=== PATIENT | female | born 1955 | race Caucasian/White ===

== ENCOUNTER 2020-04-01 16:23 | Inpatient (IN) ==
[2020-04-01] MEDS: *HR* OxyCODONE Immed Rel 5 MG TABLET PO PRN (18:58)
[2020-04-01] MEDS: Metoprolol 100 MG TABLET PO SCH (20:38)
[2020-04-01] MEDS: amLODIPine 5 MG TABLET PO SCH (20:38)
[2020-04-01] MEDS: *HR* Metformin 500 MG TABLET PO SCH (20:41)
[2020-04-02 06:32] LABS: Basophils % 0.1 %; Eosinophils # 0.1 K/mcL (0.0-0.6); Eosinophils % 0.6 %; Hematocrit 25.4 % (35.3-44.9); Hemoglobin 8.8 g/dL (11.5-15.4); Immature Granulocytes % 0.5 % (0-4); Lymphocytes # 1.9 K/mcL (0.6-4.6); Lymphocytes % 20.6 %; Mean Corpuscular HGB Conc 34.6 g/dL (31.6-35.5); Mean Corpuscular Hemoglobin 32.1 pg (28.0-33.3); Mean Corpuscular Volume 92.7 fL (83.0-100.0); Mean Platelet Volume 10.8 fL (9.4-12.4); Monocytes % 11.1 %; Neutrophils # 6.2 K/mcL (1.6-8.9); Platelet Count 239 K/mcL (140-400); Red Blood Count 2.74 M/mcL (3.82-4.97); Red Cell Distribution Width 12.4 % (11.5-14.5); Segmented Neutrophils % 67.1 %; White Blood Count 9.3 K/mcL (4.3-11.1)
[2020-04-02 06:52] LABS: BUN/Creatinine Ratio 12 (6-26); Blood Urea Nitrogen 8 mg/dL (8-23); Calcium 8.3 mg/dL (8.6-10.3); Carbon Dioxide 29 mEq/L (23-29); Chloride 98 mEq/L (98-107); Glucose 161 mg/dL (70-105); Osmolality,Calculated 284 (280-300); Potassium 3.2 mEq/L (3.5-5.1); Sodium 136 mEq/L (136-145); eGFR For African Americans > 60 (> 60); eGFR For Non-African Americans > 60 (> 60)
[2020-04-02] MEDS: amLODIPine 5 MG TABLET PO SCH ×2 (08:53→20:45)
[2020-04-02] MEDS: Losartan/HCTZ 50-12.5 TABLET PO SCH (08:54)
[2020-04-02] MEDS: *HR* OxyCODONE Immed Rel 5 MG TABLET PO PRN ×2 (08:54→17:04)
[2020-04-02] MEDS: *HR* Metformin 500 MG TABLET PO SCH ×2 (08:54→17:02)
[2020-04-02] MEDS: Metoprolol 100 MG TABLET PO SCH ×2 (08:54→20:45)
[2020-04-02] MEDS: FLUoxetine 20 MG CAPSULE PO SCH (08:55)
[2020-04-02] MEDS: Cholecalciferol (D-3) 1,000 UNIT (25MCG) TABLET PO SCH (08:55)
[2020-04-02] MEDS: (Colestipol Hcl [Colestid] 1 GM) PO SCH (08:55)
[2020-04-02] MEDS ORDERED: Aspirin Enteric Coated 81 MG Tablet PO SCH (09:00)
[2020-04-02] MEDS: Acetaminophen 325 MG TABLET PO PRN (14:04)
[2020-04-02] MEDS: Insulin LISPRO 300 UNITS/3 ML VIAL SQ SCH (23:24)
[2020-04-03] MEDS: Acetaminophen 325 MG TABLET PO PRN ×2 (05:50→14:06)
[2020-04-03] MEDS: *HR* Enoxaparin 40 MG/0.4 ML SYRINGE SQ SCH (05:51)
[2020-04-03] MEDS: FLUoxetine 20 MG CAPSULE PO SCH (09:08)
[2020-04-03] MEDS: Aspirin Enteric Coated 81 MG Tablet PO SCH (09:08)
[2020-04-03] MEDS: Metoprolol 100 MG TABLET PO SCH ×2 (09:08→22:00)
[2020-04-03] MEDS: *HR* Metformin 500 MG TABLET PO SCH ×2 (09:08→16:42)
[2020-04-03] MEDS: amLODIPine 5 MG TABLET PO SCH ×2 (09:08→21:59)
[2020-04-03] MEDS: Losartan/HCTZ 50-12.5 TABLET PO SCH (09:09)
[2020-04-03] MEDS: Cholecalciferol (D-3) 1,000 UNIT (25MCG) TABLET PO SCH (09:09)
[2020-04-03] MEDS: (Colestipol Hcl [Colestid] 1 GM) PO SCH (09:09)
[2020-04-03] MEDS: *HR* OxyCODONE Immed Rel 5 MG TABLET PO PRN (09:15)
[2020-04-03] MEDS: Insulin LISPRO 300 UNITS/3 ML VIAL SQ SCH ×4 (09:16→21:59)
[2020-04-04] MEDS: *HR* Enoxaparin 40 MG/0.4 ML SYRINGE SQ SCH (06:23)
[2020-04-04] MEDS: Metoprolol 100 MG TABLET PO SCH ×2 (08:16→21:22)
[2020-04-04] MEDS: *HR* OxyCODONE Immed Rel 5 MG TABLET PO PRN ×2 (08:16→21:25)
[2020-04-04] MEDS: *HR* Metformin 500 MG TABLET PO SCH ×2 (08:16→16:44)
[2020-04-04] MEDS: Losartan/HCTZ 50-12.5 TABLET PO SCH (08:16)
[2020-04-04] MEDS: Cholecalciferol (D-3) 1,000 UNIT (25MCG) TABLET PO SCH (08:16)
[2020-04-04] MEDS: FLUoxetine 20 MG CAPSULE PO SCH (08:16)
[2020-04-04] MEDS: Aspirin Enteric Coated 81 MG Tablet PO SCH (08:16)
[2020-04-04] MEDS: amLODIPine 5 MG TABLET PO SCH ×2 (08:17→21:22)
[2020-04-04] MEDS: (Colestipol Hcl [Colestid] 1 GM) PO SCH ×2 (08:18→12:23)
[2020-04-04] MEDS: Insulin LISPRO 300 UNITS/3 ML VIAL SQ SCH ×4 (08:18→21:23)
[2020-04-04] MEDS: Acetaminophen 325 MG TABLET PO PRN (12:01)
[2020-04-04 16:33] LABS: Basophils % 0.3 %; Eosinophils # 0.2 K/mcL (0.0-0.6); Eosinophils % 1.5 %; Hematocrit 25.9 % (35.3-44.9); Hemoglobin 8.9 g/dL (11.5-15.4); Immature Granulocytes % 0.5 % (0-4); Lymphocytes # 2.6 K/mcL (0.6-4.6); Lymphocytes % 25.9 %; Mean Corpuscular HGB Conc 34.4 g/dL (31.6-35.5); Mean Corpuscular Hemoglobin 31.6 pg (28.0-33.3); Mean Corpuscular Volume 91.8 fL (83.0-100.0); Monocytes % 9.4 %; Neutrophils # 6.3 K/mcL (1.6-8.9); Nucleated Red Blood Cells 0.2 /100 WBC (0); Platelet Count 304 K/mcL (140-400); Red Blood Count 2.82 M/mcL (3.82-4.97); Red Cell Distribution Width 12.6 % (11.5-14.5); Segmented Neutrophils % 62.4 %; White Blood Count 10.1 K/mcL (4.3-11.1)
[2020-04-04 16:42] LABS: BUN/Creatinine Ratio 16 (6-26); Blood Urea Nitrogen 12 mg/dL (8-23); Calcium 8.3 mg/dL (8.6-10.3); Carbon Dioxide 27 mEq/L (23-29); Chloride 98 mEq/L (98-107); Glucose 145 mg/dL (70-105); Osmolality,Calculated 282 (280-300); Potassium 2.8 mEq/L (3.5-5.1); Sodium 135 mEq/L (136-145); eGFR For African Americans > 60 (> 60); eGFR For Non-African Americans > 60 (> 60)
[2020-04-05] MEDS: *HR* Enoxaparin 40 MG/0.4 ML SYRINGE SQ SCH (06:18)
[2020-04-05] MEDS: Insulin LISPRO 300 UNITS/3 ML VIAL SQ SCH ×4 (08:55→21:17)
[2020-04-05] MEDS: *HR* Metformin 500 MG TABLET PO SCH ×2 (08:56→16:45)
[2020-04-05] MEDS: FLUoxetine 20 MG CAPSULE PO SCH (08:57)
[2020-04-05] MEDS: Cholecalciferol (D-3) 1,000 UNIT (25MCG) TABLET PO SCH (08:57)
[2020-04-05] MEDS: amLODIPine 5 MG TABLET PO SCH ×2 (08:57→21:16)
[2020-04-05] MEDS: Aspirin Enteric Coated 81 MG Tablet PO SCH (08:57)
[2020-04-05] MEDS: (Colestipol Hcl [Colestid] 1 GM) PO SCH (09:01)
[2020-04-05] MEDS: Losartan/HCTZ 50-12.5 TABLET PO SCH (09:17)
[2020-04-05] MEDS: Metoprolol 100 MG TABLET PO SCH ×2 (09:17→21:16)
[2020-04-05] MEDS: Acetaminophen 325 MG TABLET PO PRN (11:16)
[2020-04-05] MEDS ORDERED: Simethicone 80 MG TAB.CHEW PO PRN (22:37)
[2020-04-05] MEDS: *HR* OxyCODONE Immed Rel 5 MG TABLET PO PRN (23:11)
[2020-04-06] MEDS: *HR* Enoxaparin 40 MG/0.4 ML SYRINGE SQ SCH (06:42)
[2020-04-06] MEDS: (Colestipol Hcl [Colestid] 1 GM) PO SCH (08:17)
[2020-04-06] MEDS: Metoprolol 100 MG TABLET PO SCH ×2 (08:19→21:12)
[2020-04-06] MEDS: *HR* Metformin 500 MG TABLET PO SCH ×2 (08:19→16:48)
[2020-04-06] MEDS: amLODIPine 5 MG TABLET PO SCH ×2 (08:19→21:12)
[2020-04-06] MEDS: FLUoxetine 20 MG CAPSULE PO SCH (08:19)
[2020-04-06] MEDS: Aspirin Enteric Coated 81 MG Tablet PO SCH (08:19)
[2020-04-06] MEDS: Cholecalciferol (D-3) 1,000 UNIT (25MCG) TABLET PO SCH (08:19)
[2020-04-06] MEDS: Losartan/HCTZ 50-12.5 TABLET PO SCH (08:19)
[2020-04-06] MEDS: Insulin LISPRO 300 UNITS/3 ML VIAL SQ SCH ×4 (08:20→21:12)
[2020-04-06] MEDS: *HR* OxyCODONE Immed Rel 5 MG TABLET PO PRN ×3 (08:30→21:13)
[2020-04-06 08:33] LABS: BUN/Creatinine Ratio 15 (6-26); Blood Urea Nitrogen 9 mg/dL (8-23); Calcium 8.4 mg/dL (8.6-10.3); Carbon Dioxide 30 mEq/L (23-29); Chloride 98 mEq/L (98-107); Glucose 151 mg/dL (70-105); Magnesium 1.6 mg/dL (1.6-2.6); Osmolality,Calculated 286 (280-300); Potassium 2.9 mEq/L (3.5-5.1); Sodium 137 mEq/L (136-145); eGFR For African Americans > 60 (> 60); eGFR For Non-African Americans > 60 (> 60)
[2020-04-07] MEDS: *HR* Enoxaparin 40 MG/0.4 ML SYRINGE SQ SCH (06:15)
[2020-04-07 06:49] LABS: Hematocrit 26.7 % (35.3-44.9); Mean Corpuscular HGB Conc 33.7 g/dL (31.6-35.5); Mean Corpuscular Hemoglobin 31.8 pg (28.0-33.3); Mean Corpuscular Volume 94.3 fL (83.0-100.0); Mean Platelet Volume 9.8 fL (9.4-12.4); Platelet Count 338 K/mcL (140-400); Red Blood Count 2.83 M/mcL (3.82-4.97); Red Cell Distribution Width 13.1 % (11.5-14.5); White Blood Count 8.2 K/mcL (4.3-11.1)
[2020-04-07] MEDS: *HR* Metformin 500 MG TABLET PO SCH ×2 (07:26→17:03)
[2020-04-07 07:27] LABS: BUN/Creatinine Ratio 16 (6-26); Blood Urea Nitrogen 11 mg/dL (8-23); Calcium 8.5 mg/dL (8.6-10.3); Carbon Dioxide 28 mEq/L (23-29); Chloride 100 mEq/L (98-107); Glucose 147 mg/dL (70-105); Osmolality,Calculated 288 (280-300); Potassium 3.8 mEq/L (3.5-5.1); Sodium 138 mEq/L (136-145); eGFR For African Americans > 60 (> 60); eGFR For Non-African Americans > 60 (> 60)
[2020-04-07] MEDS: FLUoxetine 20 MG CAPSULE PO SCH (07:27)
[2020-04-07] MEDS: Cholecalciferol (D-3) 1,000 UNIT (25MCG) TABLET PO SCH (07:27)
[2020-04-07] MEDS: amLODIPine 5 MG TABLET PO SCH ×2 (07:27→20:40)
[2020-04-07] MEDS: Aspirin Enteric Coated 81 MG Tablet PO SCH (07:27)
[2020-04-07] MEDS: (Colestipol Hcl [Colestid] 1 GM) PO SCH (07:29)
[2020-04-07] MEDS: Insulin LISPRO 300 UNITS/3 ML VIAL SQ SCH ×4 (07:29→20:39)
[2020-04-07] MEDS: Metoprolol 100 MG TABLET PO SCH ×2 (07:35→20:40)
[2020-04-07] MEDS: Acetaminophen 325 MG TABLET PO PRN ×2 (11:31→22:00)
[2020-04-07] MEDS: *HR* OxyCODONE Immed Rel 5 MG TABLET PO PRN (20:40)
[2020-04-08] MEDS: *HR* Enoxaparin 40 MG/0.4 ML SYRINGE SQ SCH (05:46)
[2020-04-08] MEDS: amLODIPine 5 MG TABLET PO SCH ×2 (09:31→21:33)
[2020-04-08] MEDS: Aspirin Enteric Coated 81 MG Tablet PO SCH (09:31)
[2020-04-08] MEDS: Insulin LISPRO 300 UNITS/3 ML VIAL SQ SCH ×4 (09:31→21:34)
[2020-04-08] MEDS: *HR* Metformin 500 MG TABLET PO SCH ×2 (09:31→17:07)
[2020-04-08] MEDS: FLUoxetine 20 MG CAPSULE PO SCH (09:31)
[2020-04-08] MEDS: (Colestipol Hcl [Colestid] 1 GM) PO SCH (09:31)
[2020-04-08] MEDS: Cholecalciferol (D-3) 1,000 UNIT (25MCG) TABLET PO SCH (09:31)
[2020-04-08] MEDS: Metoprolol 100 MG TABLET PO SCH ×2 (09:31→21:33)
[2020-04-08] MEDS: *HR* OxyCODONE Immed Rel 5 MG TABLET PO PRN ×2 (09:43→17:07)
[2020-04-08] MEDS: Acetaminophen 325 MG TABLET PO PRN (21:34)
[2020-04-09] MEDS: *HR* Enoxaparin 40 MG/0.4 ML SYRINGE SQ SCH (06:02)
[2020-04-09] MEDS: *HR* Metformin 500 MG TABLET PO SCH ×2 (07:55→18:12)
[2020-04-09] MEDS: Cholecalciferol (D-3) 1,000 UNIT (25MCG) TABLET PO SCH (07:55)
[2020-04-09] MEDS: FLUoxetine 20 MG CAPSULE PO SCH (07:55)
[2020-04-09] MEDS: Aspirin Enteric Coated 81 MG Tablet PO SCH (07:55)
[2020-04-09] MEDS: Metoprolol 100 MG TABLET PO SCH ×2 (07:55→21:39)
[2020-04-09] MEDS: amLODIPine 5 MG TABLET PO SCH ×2 (07:55→21:39)
[2020-04-09] MEDS: Insulin LISPRO 300 UNITS/3 ML VIAL SQ SCH ×4 (07:56→21:31)
[2020-04-09] MEDS: Acetaminophen 325 MG TABLET PO PRN ×2 (08:01→18:13)
[2020-04-09] MEDS: (Colestipol Hcl [Colestid] 1 GM) PO SCH (08:01)
[2020-04-10] MEDS: Acetaminophen 325 MG TABLET PO PRN (03:35)
[2020-04-10 06:25] VITALS: BP 134/74
[2020-04-10] MEDS: *HR* Enoxaparin 40 MG/0.4 ML SYRINGE SQ SCH (06:40)
[2020-04-10] MEDS: *HR* Metformin 500 MG TABLET PO SCH (09:47)
[2020-04-10] MEDS: Aspirin Enteric Coated 81 MG Tablet PO SCH (09:47)
[2020-04-10] MEDS: (Colestipol Hcl [Colestid] 1 GM) PO SCH (09:47)
[2020-04-10] MEDS: FLUoxetine 20 MG CAPSULE PO SCH (09:47)
[2020-04-10] MEDS: amLODIPine 5 MG TABLET PO SCH (09:47)
[2020-04-10] MEDS: Cholecalciferol (D-3) 1,000 UNIT (25MCG) TABLET PO SCH (09:47)
[2020-04-10] MEDS: Insulin LISPRO 300 UNITS/3 ML VIAL SQ SCH (09:47)
[2020-04-10] MEDS: Metoprolol 100 MG TABLET PO SCH (09:50)
== END 2020-04-10 13:18 | disposition home or self-care (01) | DRG 560 ==
LOC: INPPIK 18:23
PROVIDERS: ADMIT Family Medicine; ATTEND Family Medicine